=== PATIENT | male | born 1940 | race Caucasian/White ===

== ENCOUNTER → 2018-06-26 | Outpatient (CLI) | payer OTHER, MEDICARE ==
--- NOTE | ~2018-06-26 | PFR/MVV ---
[facility] [place] [address] PULMONARY FUNCTION MVV/REPORT Name: TRAY NEFF Room #: [facility]#: [id number] Admission: 06/26/18 Attend Phys: kristina. PAXTON Franco Discharge: Date of : 38 Report #: [id number] THIS REPORT FOR: //name// >> SPIROMETRY: (BTPS) Height: in cm Weight: lbs kg Exam Date: PRE-RX POST-RX PRED BEST %PRED BEST %PRED %CHG FVC LITERS . . . . . . FEV1 LITERS . . . . . . FEV1/FVC % . . . . . . XVU58-30% L/Sec . . . . . . PEF L/SEC . . . . . . FEF50/FIF50 UNITLESS . . . . . . MVV L/Min . . . f 1/Min . . . >> LUNG VOLUMES: (BTPS) PRE-RX POST-RX PRED AVG %PRED AVG %PRED %CHG VC Liters . . . . . . TLC Liters . . . . . . RV Liters . . . . . . RV/TLC % . . . . . . FRC PL Liters . . . . . . FRC N2 Liters . . . . . . ERV Liters . . . . . . IC Liters . . . . . . >> DIFFUSION: DLCO ml/Min/mmHg . . . . . . DL Elisa ml/Min/mmHg . . . . . . DLCO/VA ml/Min/mmHg . . . . . . VA Liters . . . . . . COMMENTS: COMMENTS: >> RESISTANCE: [facility] [address] [place] [address] PULMONARY FUNCTION MVV/REPORT Name: AISHWARYATRAY W Room #: REG [facility]#: [id number] Admission: 06/26/18 Attend Phys: kristina. PAXTON Franco Discharge: Date of : 38 Report #: [id number] PRE-RX PRED AVG %PRED Raw Total cmH20/L/Sec . . . Raw Insp cmH20/L/Sec . . . Raw Exp cmH20/L/Sec . . . Raw cmH20/L/Sec . . . Gaw L/Sec/cmH20 . . . sRaw cmH20 Sec . . . sGaw l/cmH20 Sec . . . Vtq Liters . . . # = OUTSIDE 95% CONFIDENCE INTERVAL CALIBRATION: PRED: 3.00 ACTUAL: EXP 3.01 INSP 3.02 [facility]-OL04-05 [facility]- N-1804-4 >> INTERPRETATION/IMPRESSION: CC: Steve Franco DATE OF SERVICE: 06/26/2018 PULMONARY FUNCTION STUDIES FINDINGS: FEV1 is 2.02 liters (50%). FVC is 2.41 liters (47%), postbronchodilator response with no significant response to therapy. Total lung capacity is 4.35 liters (56%). Diffusion capacity is 29%. IMPRESSION: Pulmonary function studies are consistent with a [id number] restrictive airflow defect. Diffusion capacity is very severely decreased. There is no significant response to bronchodilator therapy. By: Ronni Corado MD /nt
== END ==
LOC: PUL 09:31
DX: J84.9 Interstitial pulmonary disease, unspecified (principal)

== ENCOUNTER → 2018-12-02 | Outpatient (CLI) | payer OTHER, MEDICARE ==
--- NOTE | 2018-12-16 19:29 | PFR/MVV ---
[facility] [place] [address] PULMONARY FUNCTION MVV/REPORT Name: TRAY NEFF Room #: REG [facility]#: [id number] ������������������ Admission: 12/02/18 ������������������ Attend Phys: kristina. PAXTON Franco Discharge: ������������������ Date of : 38 Report #: [id number] THIS REPORT FOR: //name// >> SPIROMETRY: (BTPS) Height: 76 in cm Weight: 184 lbs kg Exam Date: 12/02/18 PRE-RX POST-RX PRED BEST %PRED BEST %PRED %CHG FVC LITERS . 5.03 . 2.74 . 54 . 2.70 . 54 . -2 FEV1 LITERS . 3.20 . 2.37 . 74 . 2.46 . 77 . 4 FEV1/FVC % . 64 . 86 . 135 . 91 . 142 . 6 RYH11-48% L/Sec . 2.53 . 3.96 . 157 . 5.09 . 201 . 28 PEF L/SEC . 9.38 . 9.04 . 96 . 8.53 . 91 . -6 FEF50/FIF50 UNITLESS . . . . 21.62 . . -84 MVV L/Min . 137 . 68 . 50 f 1/Min . . 150 . >> LUNG VOLUMES: (BTPS) PRE-RX POST-RX PRED AVG %PRED AVG %PRED %CHG VC Liters . 5.03 . 2.76 . 55 . . . TLC Liters . 7.81 . 3.54 . 45 . . . RV Liters . 3.11 . 0.78 . 25 . . . RV/TLC % . 44 . 22 . 50 . . . FRC [address] Liters . 4.72 . 1.65 . 35 . . . FRC N2 Liters . . . . . . ERV Liters . 1.73 . 0.87 . 50 . . . IC Liters . 3.46 . 2.03 . 59 . . . >> DIFFUSION: DLCO ml/Min/mmHg . 21.1 . 3.6 . 17 . . . DL Elisa ml/Min/mmHg . 21.1 . 3.6 . 17 . . . DLCO/VA ml/Min/mmHg . 3.33 . 1.57 . 47 . . . VA Liters . . 2.28 . . . . COMMENTS: COMMENTS: >> RESISTANCE: [facility] [address] [place] [address] PULMONARY FUNCTION MVV/REPORT Name: TRAY NEFF Room #: [facility].#: [id number] ������������������ Admission: 12/02/18 ������������������ Attend Phys: kristina. PAXTON Franco Discharge: ������������������ Date of : 38 Report #: [id number] PRE-RX PRED AVG %PRED Raw Total cmH20/L/Sec . . 2.04 . Raw Insp cmH20/L/Sec . . 0.43 . Raw Exp cmH20/L/Sec . . 1.31 . Raw cmH20/L/Sec . 0.90 . 1.09 . 122 Gaw L/Sec/cmH20 . 1.132 . 0.914 . 81 sRaw cmH20 Sec . 4.22 . 3.26 . 78 sGaw l/cmH20 Sec . 0.237 . 0.305 . 129 Vtq Liters . . 3.00 . # = OUTSIDE 95% CONFIDENCE INTERVAL CALIBRATION: PRED: 3.00 ACTUAL: EXP 3.01 INSP 3.02 [facility]-OL10-06 [facility]-05 N-1804-4 >> INTERPRETATION/IMPRESSION: CC: Elise Franco, PAXTON zhang. Joan PULMONARY FUNCTION TEST: Spirometric examination revealed mild to moderately reduced flows. There was no significant bronchodilator response. Small airways disease is suggested, however. Lung volumes are markedly reduced. Total lung capacity measured 45% predicted. Diffusion capacity is markedly reduced, when corrected for alveolar volume it remained abnormally reduced. Flow volume loop is consistent with restrictive ventilatory defect. IMPRESSION: Moderately severe restrictive ventilatory defect. Diffusion capacity is markedly reduced. Clinical correlation is recommended. ��������������������������������������������� <ELECTRONICALLY SIGNED> ���������������������������������������� By: Cullen Hinkle MD ��������������������������������������������� 12/16/18 1929 Cullen Hinkle MD /nt
== END ==
LOC: PUL 09:38
DX: J84.112 Idiopathic pulmonary fibrosis (principal); Z88.8 Allergy status to other drugs, medicaments and biological substances

== ENCOUNTER → 2019-07-15 | Outpatient (CLI) | payer OTHER, MEDICARE ==
--- NOTE | 2019-08-03 19:37 | PFR/MVV ---
[facility] [place] [address] PULMONARY FUNCTION MVV/REPORT Name: TRAY NEFF Room #: REG [facility]#: [id number] Admission: 07/15/19 Attend Phys: Elise Franco Discharge: Date of : 38 Report #: [id number] THIS REPORT FOR: //name// >> SPIROMETRY: (BTPS) Height: 76 in cm Weight: 190 lbs kg Exam Date: 07/15/19 PRE-RX POST-RX PRED BEST %PRED BEST %PRED %CHG FVC LITERS . 5.01 . 2.63 . 53 . 5.54 . 51 . -3 FEV1 LITERS . 3.17 . 2.17 . 68 . 2.15 . 68 . -1 FEV1/FVC % . 64 . 82 . 128 . 84 . 132 . 3 YXD14-43% L/Sec . 2.49 . 2.77 . 112 . 6.52 . 141 . 27 PEF L/SEC . 9.35 . 9.06 . 97 . 8.35 . 89 . -8 FEF50/FIF50 UNITLESS . <1.00 . 1.61 . . 1.74 . . 8 MVV L/Min . 135 . 97 . 72 f 1/Min . . 65 . >> LUNG VOLUMES: (BTPS) PRE-RX POST-RX PRED AVG %PRED AVG %PRED %CHG VC Liters . 5.01 . 3.31 . 66 . . . TLC Liters . 7.79 . 3.57 . 46 . . . RV Liters . 3.12 . 0.26 . 8 . . . RV/TLC % . 44 . 7 . 16 . . . FRC PL Liters . 4.66 . 0.44 . 9 . . . FRC N2 Liters . 4.66 . . . . . ERV Liters . 1.72 . 0.18 . 10 . . . IC Liters . 3.44 . 3.21 . 93 . . . >> DIFFUSION: DLCO ml/Min/mmHg . 21.4 . 6.7 . 31 . . . DL Elisa ml/Min/mmHg . 21.4 . 6.7 . 31 . . . DLCO/VA ml/Min/mmHg . 3.29 . 2.25 . 68 . . . VA Liters . . 2.97 . . . . COMMENTS: COMMENTS: >> RESISTANCE: [facility] [address] [place] [address] PULMONARY FUNCTION MVV/REPORT Name: TRAY NEFF Room #: [facility] Daniella#: [id number] Admission: 07/15/19 Attend Phys: Elise Franco Discharge: Date of : 38 Report #: [id number] PRE-RX PRED AVG %PRED Raw Total cmH20/L/Sec . . 2.14 . Raw Insp cmH20/L/Sec . . 1.38 . Raw Exp cmH20/L/Sec . . 1.66 . Raw cmH20/L/Sec . 0.91 . 1.31 . 144 Gaw L/Sec/cmH20 . 1.119 . 0.763 . 68 sRaw cmH20 Sec . 4.23 . 3.60 . 85 sGaw l/cmH20 Sec . 0.236 . 0.278 . 118 Vtq Liters . . 2.74 . # = OUTSIDE 95% CONFIDENCE INTERVAL CALIBRATION: PRED: 3.00 ACTUAL: EXP 3.01 INSP 3.02 [facility]-OL10-06 [facility]-05 N-1804-4 >> INTERPRETATION/IMPRESSION: CC: Elise Barnhart DATE OF SERVICE: 08/02/2019 PULMONARY FUNCTION STUDIES SPIROMETRY: FEV1 is 2.17 liters (68%), FVC is 2.63 liters (53%). FEV1/FVC ratio is 82%. No significant response to bronchodilator therapy. LUNG VOLUMES: Total lung capacity is 3.57 liters (46%). Vital capacity is 3.31 liters (66%). DLCO is 31%. IMPRESSION: Pulmonary function studies are consistent with a severe restrictive airflow defect with no significant response to bronchodilator therapy. Diffusing capacity is severely decreased. <ELECTRONICALLY SIGNED> By: Ronni Corado MD 08/03/19 1937 Ronni Corado MD /nt
== END ==
LOC: PUL 09:43
DX: J44.9 Chronic obstructive pulmonary disease, unspecified (principal)

== ENCOUNTER → 2020-06-06 | Outpatient (CLI) | payer OTHER, MEDICARE | LOC: LAB 13:34 | PROVIDERS: ATTEND Internal Medicine | DX: Z01.812 Encounter for preprocedural laboratory examination (principal); Z20.828 Contact with and (suspected) exposure to other viral communicable diseases ==

== ENCOUNTER → 2020-06-08 | Outpatient (CLI) | payer OTHER, MEDICARE | LOC: PUL 07:35 | PROVIDERS: ATTEND Internal Medicine | DX: Z09 Encounter for follow-up examination after completed treatment for conditions other than malignant neoplasm (principal); J84.10 Pulmonary fibrosis, unspecified ==